=== PATIENT | female | born 1975 | race Two or more races ===

== ENCOUNTER 2016-07-25 21:24 | Emergency (ER) | payer SELFPAY ==
[~2016-07-25] VITALS: Ht 160 cm; Wt 63.5 kg
[2016-07-25 22:53] VITALS: BP 129/41
[2016-07-25] MEDS ORDERED: KETOROLAC TROMETH 60MG/2ML VIAL IM ONE (23:15)
[2016-07-25] MEDS ORDERED: HYDROcodone-ACET 5/325MG TAB PO ONE (23:15)
== END 2016-07-26 00:04 | disposition home or self-care (01) ==
LOC: ER 21:29
DX: S20.212A Contusion of left front wall of thorax, initial encounter (principal); M54.2 Cervicalgia; M79.604 Pain in right leg; M25.551 Pain in right hip; V43.52XA Car driver injured in collision with other type car in traffic accident, initial encounter; Y93.89 Activity, other specified; Y92.89 Other specified places as the place of occurrence of the external cause; Y99.8 Other external cause status
CPT/HCPCS: 96372; 99283; J1885